=== PATIENT | male | born 1955 | race Caucasian/White ===

== ENCOUNTER 2018-08-27 22:13 | Emergency (ER) | payer SELFPAY ==
[~2018-08-27] VITALS: Ht 177.8 cm; Wt 77.0 kg
[2018-08-28] MEDS ORDERED: ACETAMINOPHEN 325MG TABLET PO STA (06:02)
[2018-08-28 08:20] VITALS: BP 146/81
== END 2018-08-28 08:25 | disposition home or self-care (01) ==
LOC: ER 22:13
DX: M79.18 Myalgia, other site (principal); F17.210 Nicotine dependence, cigarettes, uncomplicated; Z76.0 Encounter for issue of repeat prescription
CPT/HCPCS: 99283